=== PATIENT | female | born 1950 | race Caucasian/White ===

== ENCOUNTER 2018-12-26 16:06 | Inpatient (IN) | payer OTHER, MEDICAID ==
[~2018-12-26] VITALS: Ht 149.4 cm; Wt 70.4 kg
--- NOTE | ~2018-12-26 | PR ---
[place], [place] PROGRESS NOTE [facility] [id number] UNIT #: [id number] ROOM: 311 DOCTOR: COLETTE REYES MD BIRTHDATE: [birth year] DOS: 12/29/2018 INTERVAL NOTE CHIEF COMPLAINT: "Oh, I think I am losing my voice from talking so much. I can't control myself." SUMMARY OF THE VISIT: The patient was interviewed first in the dining area and then later she requested to see me privately. She reports that she does feel better as the Seroquel has been increased. She does note, however, she has been talking so much. She is about ready to lose her voice. She also notes that her skin is itchy and dry and requested something to help stop the itch. Otherwise, she is relatively more on target and is tolerating the medicines well. I see no sedation, somnolence, extrapyramidal symptoms or tardive dyskinesia. MENTAL STATUS: She is alert and oriented with some time gaps. Mood does seem to be strongly trending towards euthymia. Affect is more appropriate. There is no gustabo, hypomania or psychosis. Short-term memory continues to be problematic. PLAN: I will go ahead and continue to titrate her Seroquel upwards bringing it from 400 mg at bedtime to 600 mg at bedtime. I will order Benadryl cream t.i.d. to stop some of her itching. I will engage her in individual and bain milieu activities, returning then to the least restrictive environment when psychiatrically stable. COLETTE REYES MD CM:PNTRANS [id number] COLETTE REYES MD 12/29/18 1205 interface
--- NOTE | ~2018-12-26 | PR ---
[place], [place] PROGRESS NOTE NAME: ALEXA CORNEJO UNIT #: [id number] ROOM: 311 DOCTOR: COLETTE REYES MD BIRTHDATE: [birth year] DOS: 12/30/2018 CHIEF COMPLAINT: "Oh, I am just so manicy, I can't stop talking." SUMMARY OF THE VISIT: The patient was interviewed as she was sitting in the side of the dining area. She stopped and engaged readily in conversation. She is anxious to be able to go to [place]. She realizes that she will have more freedom there and be able to do more of the things she likes to do. She still is identifying herself as feeling manic and feels pressured to talk and states she is afraid that it is offending other people because she just cannot stop talking. She is tolerating the medication regimen well and notes no daytime somnolence. She is sleeping better at night. There is no tardive dyskinesia or extrapyramidal symptoms. MENTAL STATUS: She is alert and oriented. Mood does seem to be trending towards euthymia. Affect is more appropriate. There are no auditory or visual hallucinations, delusions or paranoia. Short-term memory has mild gaps, otherwise she is intact. PLAN: I will increase her Seroquel from 600 to 800 mg at bedtime, increase her Vistaril from 50 mg 3 times a day to 4 times a day. All in the effort to decrease her anxiety and stabilize her mood. Engage in individual and bain milieu activity, returning to the least restrictive environment when psychiatrically stable. COLETTE REYES MD CM:PNTRANS [id number] COLETTE REYES MD 12/30/18 1512 interface
--- NOTE | ~2018-12-26 | DS ---
[place], [place] DISCHARGE SUMMARY NAME: ALEXA CORNEJO [facility] #: [id number] UNIT #: [id number] ROOM: 311 DOCTOR: COLETTE MARTÍNEZ MD BIRTHDATE: [birth year] DOS: 01/02/2019 CHIEF COMPLAINT: "Oh, I didn't sleep at all, I am just not doing well, Dr. Martínez." HISTORY OF PRESENT ILLNESS: This is a 68-year-old white female who was readmitted to the [facility] after a brief stay on the medical floor. The patient had initially been admitted to the [facility] due to significant mood lability with neurovegetative symptoms as well as mixed gustabo. The patient did have a significant drop in her H and H and was transferred medically to rule out a GI bleed. Once she was restabilized medically, it was felt she was still exhibiting significant signs of depression as well as gustabo and was now transferred back to the U for psychiatric stabilization. 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 She also noted increased irritability and agitation. She was pressured and labile and was now admitted then to stabilize psychiatrically. SUMMARY OF HOSPITAL COURSE: The patient was admitted where she was initially maintained on Zyprexa, but she did state that this had not been effective for her and that per her recollection, the most effective medicine in the past had been Seroquel at a dose of 800 mg a day. Zyprexa was discontinued and Seroquel was started at 200 mg at bedtime and very rapidly then titrated up to its 800 mg dose. Screening examination showed her to have a low normal vitamin B12 level of 324, so a vitamin B12 injection of 1000 mcg monthly was started. She also had a low folic acid level at 4.45, so a folic acid with B complex vitamin was added. Her vitamin D level was also low at 25.3, so vitamin D 5000 International Units daily was started. As the Seroquel dose was increased she did become much more euthymic. Additionally, the patient complained of ongoing anxiety as well as significant headaches, although she described them as migraines, they seemed much more like muscle contraction headaches. Because of her previous history of substance abuse, controlled substances were avoided. Initially, I attempted to stabilize her on hydroxyzine, but this was ineffective. I later discontinue this in lieu of Zanaflex 4 mg 4 times a day with a very significant relief in both the anxiety and the headaches. The patient had improved sufficiently to be able to be discharged to [facility] in [place], [place]. MENTAL STATUS AT DISCHARGE: The patient is alert and oriented to person, place and time. Mood does seem to be euthymic. Affect is more appropriate. There is no gustabo, hypomania or gross psychosis. Short-term memory has mild gaps, otherwise she is intact. FINAL DIAGNOSES UPON DISCHARGE: Bipolar type 1, mixed; anxiety disorder, not otherwise specified. PLAN: All of her prescriptions have been printed and will be sent with her. I will be the treating psychiatrist upon record upon her admission to [place]. At the time of discharge, she was medically and psychiatrically stable. [place], [place] DISCHARGE SUMMARY NAME: ALEXA CORNEJO UNIT #: [id number] ROOM: 311 DOCTOR: COLETTE MARTÍNEZ MD BIRTHDATE: [birth year] ADDENDUM CHIEF COMPLAINT: "I guess I'm ready today." SUMMARY OF THE VISIT: The patient was interviewed in her room. She reports a willingness and a readiness to return home. The patient's discharge yesterday was held up because of insurance reasons. The patient would not be able to make it into [facility] because of her current payer source and she does not meet criteria for any type of drug rehabilitation as her rehabilitation has already occurred and she is not actively withdrawing. At this point, family is asking if she can go home and she is voicing a willingness and a readiness to do so. MENTAL STATUS AT DISCHARGE: She is alert and oriented. Mood does seem to be euthymic. Affect appropriate. There is a lot of somatization, but this does seem to be her way of handling anxiety. There is no psychosis or gustabo. There is no suicidal, homicidal or self-injurious thoughts. She also convincingly denies any medication side effects. FINAL DIAGNOSES: Bipolar type 1, mixed, and polysubstance abuse. PLAN: All of her prescriptions have been sent with her. She is medically and psychiatrically stable. COLETTE MARTÍNEZ MD CM:DISCHARG [id number] COLETTE MARTÍNEZ MD 01/02/19 1405 interface
--- NOTE | ~2018-12-26 | WRIGHTHP ---
[place], [place] PATIENT HISTORY AND PHYSICAL EXAM NAME: [facility] #: [id number] UNIT #: [id number] ROOM: 311 DOCTOR: COLETTE REYES MD BIRTHDATE: [birth year] DOS: 12/26/2018 INITIAL PSYCHIATRIC EVALUATION DATE OF EVALUATION: 12/27/2018 CHIEF COMPLAINT: "Oh, I don't sleep at all. I'm just not doing well, Dr. Reyes." SUMMARY OF THE VISIT: This is a 68-year-old white female readmitted to the [facility] after a brief stay on the medical floor. The patient had initially been admitted to the [facility] due to significant mood lability with multiple neurovegetative symptoms as well as a mixed state of gustabo. The patient had a significant drop in her H and H and was then transferred medically to rule out a GI bleed. The patient was restabilized medically, but during the course of her stay on the medical floor, the patient was found to still be in a state of mixed gustabo and depression. She had poor sleep. She was pressured and labile. Mood was all over the place. She was rather irritable and agitated at times. Because of the significance in her mood lability, it was felt that a re-stabilization period on the U was warranted. PAST MEDICAL HISTORY: Remarkable for blood loss anemia, diverticulosis, esophageal ulcer, gastritis, hepatitis C, hiatal hernia, history of collins, hypertension, ovarian cyst. SOCIAL HISTORY: The patient is a cigarette smoker, IV drug user and alcohol abuser. STRENGTHS: Ambulatory, good verbal skills. WEAKNESSES: Polysubstance abuse, poor coping skills, chronic psychiatric issues. MENTAL STATUS EXAMINATION: The patient is alert and oriented. Mood does seem to be in a mixed state. She endorses depressive symptoms, but at the same time, she is pressured and labile. She does almost have flight of ideas and tends to jump from one somatic complaint to another and shifts topics very easily. She is disjointed and fragmented. There are no overt auditory or visual hallucinations. No delusions, no paranoia. Short term memory does have gaps. DIAGNOSIS: Bipolar type 1, mixed. PLAN: The patient does report that she had done best in the past with Seroquel and states that the Zyprexa that she is on currently is not effective. I will discontinue the Zyprexa in lieu of Seroquel 200 mg at bedtime. She does report that in the past, she was stabilized on 800 mg of Seroquel daily. Routine screening examinations reveal multiple abnormalities. Her vitamin B12 level is low normal at 324. I will augment with vitamin B12 injection 1000 mcg monthly. Her folic acid level is low at 4.45. I will start folic acid with B complex vitamin. Her vitamin D level was low at 25.3. I will start vitamin D 5000 [place], [place] PATIENT HISTORY AND PHYSICAL EXAM NAME: ALEXA CORNEJO UNIT #: [id number] ROOM: 311 DOCTOR: COLETTE REYES MD BIRTHDATE: [birth year] International Units daily. We will engage in individual and bain milieu activity, returning to the least restrictive environment when psychiatrically stable. COLETTE REYES MD CM:HISPHYS:PATIENT HISTORY AND PHYSICAL EXAMINATION [id number] COLETTE REYES MD 12/27/18 0933 interface
--- NOTE | ~2018-12-26 | PR ---
[place], [place] PROGRESS NOTE [id number] #: [id number] ROOM: 311 DOCTOR: COLETTE MARTÍNEZ MD BIRTHDATE: [birth year] DOS: 12/28/2018 CHIEF COMPLAINT: "I slept better Dr. Martínez, I feel better, I think this is better for me." SUMMARY OF THE VISIT: The patient was interviewed in the dining area. She had already eaten her breakfast and was sitting sipping on a cup of coffee. She engaged readily in conversation and did report that she slept a solid 6-7 hours with this change back to the Seroquel. She understands that I have to start slowly and will plan to gradually titrate this upward. She did seem to be much more goal oriented in her thinking and clearer. She did not exhibit any morning sedation or somnolence. There was no tardive dyskinesia or extrapyramidal symptoms. MENTAL STATUS: She is alert and oriented to person, place, very approximate to time. Mood does seem to be trending towards euthymia. Affect is more appropriate. There is no gustabo, hypomania, or psychosis. Short-term memory has mild gaps, otherwise she is intact. PLAN: I will continue to titrate the Seroquel upwards bringing the dose from 200 mg at bedtime to 400 mg at bedtime. I will monitor for risk, benefits, engage in individual and bain milieu activity, returning to the least restrictive environment when psychiatrically stable. COLETTE MARTÍNEZ MD CM:PNTRANS [id number] COLETTE MARTÍNEZ MD 12/28/18 1046 interface
--- NOTE | ~2018-12-26 | PR ---
[place], [place] PROGRESS NOTE [id number] UN[facility] #: [id number] ROOM: 311 DOCTOR: COLETTE REYES MD BIRTHDATE: [birth year] DOS: 12/31/2018 INTERVAL NOTE CHIEF COMPLAINT: "I am having these horrible migraines." SUMMARY OF THE VISIT: The patient was interviewed in the dining area where she had her breakfast completed. She smiled readily and shook my hand upon approach. She reports that she is feeling better with the increase in the Seroquel and is hopeful that as time goes on, it will work even better. She was focused once again on somatic issues this time complaining of what she describes as migraines, but what sound like muscle contraction headaches. She does report that the Vistaril has been ineffective at relieving her anxiety. MENTAL STATUS: She is alert and oriented. Mood does seem to be trending towards euthymia and her mood lability and pressured speech both seem to be lessening. There are no auditory or visual hallucinations. No delusions, no paranoia. PLAN: I will discontinue her Vistaril due to ineffectiveness and start her on Zanaflex 4 mg 4 times a day. My hope is that this will impact positively both on the muscle contraction headaches as well as dissipating her anxiety level. We will monitor and support, engage in individual and bain milieu activity, returning to the least restrictive environment when psychiatrically stable. COLETTE REYES MD CM:PNTRANS [id number] COLETTE REYES MD 12/31/18 1251 interface
[~2018-12-26 16:06] MED LIST: ATIVAN1 MG PO; CLONIDINE HCL0.1 MG PO; COGENTIN0.5 MG PO; EFFEXOR-XR150 MG PO; LITHIUM CARBON300 M2 PO; LYRICA100 M1 PO; MIRTAZAPINE15 M2 PO; PLAVIX75 M1 PO; PROTONIX40 MG PO; SEROQUEL25 MG PO; SEROQUEL400 M1 PO; VISTARIL50 MG PO; ZYPREXA10 M1 PO; ZYPREXA5 M1 PO
[2018-12-26 17:17] VITALS: BP 153/67
[2018-12-26 17:44] VITALS: BP 153/67
[2018-12-26 19:43] VITALS: BP 153/67
[2018-12-26 22:45] LABS: BILIRUBIN NEGATIVE (NEGATIVE); BLOOD NEGATIVE (NEGATIVE); CLARITY CLEAR (CLEAR); COLOR YELLOW (YELLOW); GLUCOSE NEGATIVE (NEGATIVE); KETONE NEGATIVE (NEGATIVE); LEUKO ESTERASE NEGATIVE (NEGATIVE); NITRITE NEGATIVE (NEGATIVE); PH 5.5 (5.0-9.0); SPECIFIC GRAVITY <= 1.005 (1.005-1.030); UROBILINOGEN 0.2 E.U./dl (0.2-1.0)
[2018-12-26 22:50] LABS: BACTERIA TRACE; EPITHELIAL CELLS 0-2; RBC 0-2 rbc/hpf (0-2)
[2018-12-27 07:21] LABS: BASO % 0.2 % (0.0-1.0); EOS # 0.1 10*3/uL (0.0-0.4); EOS % 1.1 % (1.0-4.0); HEMOGLOBIN 9.7 g/dl (12.0-16.0); LYMPH # 0.8 10*3/uL (1.3-4.4); LYMPH % 16.8 % (27.0-41.0); MEAN CELL VOLUME 92.1 fl (81.0-99.0); MEAN CORPUSCULAR HGB 30.8 pg (27.0-31.0); MEAN CORPUSCULAR HGB CONC 33.4 g/dl (33.0-37.0); MEAN PLATELET VOLUME 10.7 fl (9.6-12.3); MONO # 0.3 10*3/uL (0.1-1.0); MONO % 7.3 % (3.0-9.0); NEUT # 3.4 10*3/uL (2.3-7.9); NEUT % 74.2 % (47.0-73.0); PLATELET COUNT AUTOMATED 86 10*3/uL (130-400); RED BLOOD COUNT 3.15 10*6/uL (4.10-5.10); RED CELL DISTRI WIDTH 13.9 % (0-14.5); WHITE BLOOD COUNT 4.5 10*3/uL (4.8-10.8)
[2018-12-27 07:52] VITALS: BP 143/62
[2018-12-27 08:28] LABS: ALBUMIN 3.5 gm/dl (3.1-4.5); ALKALINE PHOSPHATASE 172 U/L (45-117); CHLORIDE 110 mmol/L (98-107); CHOLESTEROL 122 mg/dL (<200); CREATININE 0.93 mg/dL (0.55-1.02); HDL CHOLESTEROL 48 mg/dl (40-60); LDL CHOLESTEROL 51 mg/dL (9-159); POTASSIUM 4.1 mmol/L (3.5-5.1); SGOT/AST 50 IU/L (3-35); SGPT/ALT 64 U/L (12-78); SODIUM 143 mmol/L (136-145); TRIGLYCERIDES 113 mg/dl (<150); VLDL CHOLESTEROL 23 mg/dL (6-40)
[2018-12-27 08:38] LABS: BUN 14 mg/dl (7-24)
[2018-12-27 08:41] LABS: VITAMIN D, 25-HYDROXY 25.3 ng/mL (30-100)
[2018-12-27 19:48] VITALS: BP 140/87
[2018-12-28 07:41] VITALS: BP 110/72
[2018-12-28 20:29] VITALS: BP 132/65
[2018-12-29 07:47] VITALS: BP 102/64
[2018-12-29 19:04] VITALS: BP 136/76
[2018-12-30 07:42] VITALS: BP 127/60
[2018-12-30 19:11] VITALS: BP 131/67
[2018-12-31 08:03] VITALS: BP 121/62
[2018-12-31 19:51] VITALS: BP 99/62
[2019-01-01 07:45] VITALS: BP 113/55
[2019-01-01] MEDS ORDERED: VITAMIN D5000 UNI1 PO (07:48)
[2019-01-01] MEDS ORDERED: LYRICA100 M1 PO (07:48)
[2019-01-01] MEDS ORDERED: MIRTAZAPINE15 M2 PO (09:03)
[2019-01-01] MEDS ORDERED: FOLGARD TABLET1 EACH PO (09:03)
[2019-01-01] MEDS ORDERED: QUETIAPINE FUM400 M1 PO (09:03)
[2019-01-01] MEDS ORDERED: B121000 MCG/1 IM (09:03)
[2019-01-01] MEDS ORDERED: TEMAZEPAM15 M1 PO (09:03)
[2019-01-01] MEDS ORDERED: TIZANIDINE HCL4 MG PO (09:03)
[2019-01-01 20:00] VITALS: BP 132/61
[2019-01-02 07:30] VITALS: BP 134/68
== END 2019-01-02 18:32 | disposition home health service (06) | DRG 885 ==
LOC: 3N 16:06
PROVIDERS: ADMIT Psychiatry & Neurology Psychiatry
DX: F31.60 Bipolar disorder, current episode mixed, unspecified (principal); F41.9 Anxiety disorder, unspecified; K57.90 Diverticulosis of intestine, part unspecified, without perforation or abscess without bleeding; I10 Essential (primary) hypertension; F17.210 Nicotine dependence, cigarettes, uncomplicated; B19.20 Unspecified viral hepatitis C without hepatic coma; F22 Delusional disorders; F10.10 Alcohol abuse, uncomplicated; F17.200 Nicotine dependence, unspecified, uncomplicated; Z88.2 Allergy status to sulfonamides; Z90.49 Acquired absence of other specified parts of digestive tract; Z79.899 Other long term (current) drug therapy